=== PATIENT | female | born 1950 | race Caucasian/White ===

== ENCOUNTER 2017-03-30 16:04 | Emergency (ER) | payer MEDICARE, OTHER ==
[2017-03-30 18:22] LABS: BASOPHIL 0.2 % (0-2); EOSINOPHIL 1.2 % (0-7); HCT 42.6 % (37.0-47.0); HGB 15.1 g/dl (12.5-16.0); MCH 30.9 pg (25.0-31.0); MCHC 35.4 g/dL (32.0-36.0); MCV 87.3 fL (78.0-100.0); MONOCYTE 7.8 % (0-12); MPV 8.6 fL (6.0-9.5); NEUTROPHIL 62.8 % (41-80); PLT 351 K/uL (150-400); RBC 4.88 M/uL (4.20-5.40); RDW 14.3 % (11.5-14.0); WBC 12.5 K/uL (4.0-10.5)
[2017-03-30 18:35] LABS: INR 1.03 (0.9-1.2); PROTHROMBIN TIME 13.1 SECONDS (11.7-14.0); PTT 27.9 SECONDS (23.2-31.4)
[2017-03-30 18:39] LABS: CREATININE 0.7 mg/dL (0.5-1.0); POTASSIUM 4.6 mmol/L (3.5-5.1)
== END 2017-03-30 17:47 | disposition home or self-care (01) ==
LOC: FER 16:04
PROVIDERS: Internal Medicine
DX: R04.0 Epistaxis (principal); I11.9 Hypertensive heart disease without heart failure; J44.9 Chronic obstructive pulmonary disease, unspecified; F17.200 Nicotine dependence, unspecified, uncomplicated; Z79.82 Long term (current) use of aspirin; Z79.01 Long term (current) use of anticoagulants; Z95.1 Presence of aortocoronary bypass graft; Z95.5 Presence of coronary angioplasty implant and graft
CPT/HCPCS: 36415; 80048; 85025; 85610; 85730; 99283